=== PATIENT | female | born 1990 | race African-American/Black ===

== ENCOUNTER 2016-12-03 13:20 | Emergency (ER) | payer OTHER ==
[~2016-12-03] VITALS: Ht 160 cm; Wt 58.0 kg
[2016-12-03 16:50] VITALS: BP 115/69
== END 2016-12-03 16:50 | disposition home or self-care (01) ==
LOC: ER 16:29
DX: J06.9 Acute upper respiratory infection, unspecified (principal)
CPT/HCPCS: 99282